=== PATIENT | male | born 1995 | race Caucasian/White ===

== ENCOUNTER 2022-10-02 12:40 | Emergency (ER) | payer OTHER ==
[~2022-10-02] VITALS: Ht 170.2 cm; Wt 68.0 kg
--- NOTE | 2022-10-02 13:26 | NUR ---
Patient to ER bed 2 to gown for evaluation. Side rails up. Report given to OSVALDO HAND.
--- NOTE | 2022-10-02 13:28 | NUR ---
Patient arrived to ED bed 2 for c/o "diarrhea, nausea" from eating "bad food." Patient ate chicken at a baby shower two days ago. Patient started to have nausea, vomiting, diarrhea since yesterday and today patient was concerned because he had "black stools" and "fever." Patient respiration even and unlabored. No c/o pain. Urine placed in container. Patient is ambulatory with steady gait.
[2022-10-02 13:35] VITALS: BP_SYST 132
--- NOTE | 2022-10-02 14:12 | NUR ---
Patient in bed resting at the moment. No distress noted.
[2022-10-02 14:22] LABS: BILIRUBIN,URINE NEGATIVE (NEGATIVE); BLOOD, URINE NEGATIVE (NEGATIVE); CLARITY/URINE CLEAR (CLEAR); COLOR,URINE YELLOW (YELLOW); GLUCOSE,URINE NEGATIVE (NEGATIVE); KETONES,URINE 1+ (NEGATIVE); LEUKOCYTE ESTERASE ,URINE NEGATIVE (NEGATIVE); NITRITE, URINE NEGATIVE (NEGATIVE); PH,URINE 6.5 (5.0-8.0); PROTEIN URINE 1+ (NEGATIVE); UROBILINOGEN,URINE 0.2 (0.2-1.0)
[2022-10-02 14:28] LABS: BACTERIA,URINE None Seen /HPF (None Seen); RBC,URINE 0-3 /HPF (0-3); WBC,URINE 0-3 /HPF (0-3)
[2022-10-02] MEDS ORDERED: ONDANSETRON HCL 4 MG/2 ML VIAL IVP ONE (14:30)
[2022-10-02] MEDS ORDERED: KETOROLAC TROMETHAMINE 30 MG VIAL IVP ONE (14:30)
[2022-10-02] MEDS ORDERED: NACL 0.9% 1,000 ML IV ONE (14:30)
--- NOTE | 2022-10-02 15:00 | NUR ---
ER at bedside examining patient.
--- NOTE | 2022-10-02 15:10 | NUR ---
# 20 gauge angiocath placed to RAC. Use of asceptic technique. Opsite placed over site. Blood return noted. Blood for lab drawn from site. Flushed with 10 cc of normal saline. No evidence of infiltration noted. Patient tolerated well.
--- NOTE | 2022-10-02 15:12 | NUR ---
Medicated per MD orders. IVF infusing with no s/s of infiltration at this time. Will cont to monitor
[2022-10-02 15:28] LABS: BASOPHILS % (AUTO) 0.5 % (0.0-2.0); EOSINOPHILS # (AUTO) 0.1 K/uL (0.0-0.4); EOSINOPHILS % (AUTO) 1.6 % (0.0-4.0); HEMATOCRIT 46.9 % (36-54); HEMOGLOBIN 16.4 g/dL (14.0-18.0); LYMPHOCYTES % (AUTO) 20.8 % (20.5-51.5); MEAN CORPUSCULAR HEMOGLOBIN 29 pg (27-31); MEAN CORPUSCULAR HGB CONC 35 % (32-36); MEAN CORPUSCULAR VOLUME 84 fL (79.0-98.0); MONOCYTES # (AUTO) 0.5 K/uL (0.0-1.0); MONOCYTES % (AUTO) 11.6 % (1.7-9.3); NEUTROPHILS % (AUTO) 65.5 % (40.0-70.0); PLATELET COUNT (AUTO) 183 K/uL (130-430); RED BLOOD CELL COUNT(AUTO) 5.61 MIL/uL (4.2-6.2); RED CELL DISTRIBUTION WIDTH 12.7 % (9.0-15.0); WHITE BLOOD COUNT (AUTO) 4.6 K/uL (4.8-10.8)
[2022-10-02 15:36] LABS: CREATININE 1.27 mg/dL (0.55-1.30)
[2022-10-02 15:42] LABS: TOTAL BILIRUBIN 1.2 mg/dL (0.0-1.0)
[2022-10-02] MEDS ORDERED: ONDA-8 TL (16:00)
[2022-10-02] MEDS ORDERED: SUCR1TAB2 PO (16:00)
--- NOTE | 2022-10-02 19:05 | NUR ---
Patient given written and verbal discharge instructions and verbalizes understanding. ER MD discussed with patient the results and treatment provided. Patient in stable condition. ID arm band removed. IV catheter removed intact and dressing applied, no active bleeding. Rx of Zofran and carafate given. Patient educated on pain management and to follow up with PMD. Opportunity for questions provided and answered. Medication side effect fact sheet provided.
== END 2022-10-02 17:20 | disposition home or self-care (01) ==
LOC: SED 12:40
DX: A08.4 Viral intestinal infection, unspecified (principal); R11.2 Nausea with vomiting, unspecified; R19.7 Diarrhea, unspecified; R50.9 Fever, unspecified; Z79.899 Other long term (current) drug therapy
CPT/HCPCS: 99284; 96374; 96361; 96375; 80053; 81000; 85025; 86886; 86900; 86901; 36415; J1885; J2405; J7030